=== PATIENT | female | born 1985 | race Caucasian/White ===

== ENCOUNTER 2018-09-11 04:20 | Inpatient (IN) | payer MEDICAID ==
[2018-09-11] MEDS ORDERED: LACTATED RINGER'S 1,000 ML IV (04:50)
[2018-09-11] MEDS ORDERED: BUTORPHANOL 2 MG INJ IV (05:00)
[2018-09-11] MEDS ORDERED: OXYTOCIN 30 UNITS/LR 500 ML IV ×2 (05:00→21:30)
[2018-09-11] MEDS ORDERED: LIDOCAINE 1% (MPF) 30 ML INJ INJ (05:00)
[2018-09-11] MEDS ORDERED: MINERAL OIL LIGHT 10 ML VIAL TOP (05:00)
[2018-09-11] MEDS ORDERED: CARBOPROST 250 MCG INJ IM ×2 (05:00→21:30)
[2018-09-11 05:34] LABS: ADD MAN DIFF? NO
[2018-09-11] MEDS: LACTATED RINGER'S 1,000 ML IV ×4 (05:37→17:58)
[2018-09-11 05:45] LABS: BASOPHILS % 0.4 % (0.0-2.0); EOSINOPHILS # 0.1 10^3/ul (0.0-0.5); EOSINOPHILS % 1.2 % (0.0-7.0); HEMATOCRIT 37.9 % (37.0-47.0); HEMOGLOBIN 12.4 g/dl (12.0-16.0); LYMPHOCYTES # 2.3 10^3/ul (0.8-2.9); MEAN CORPUSCULAR HEMOGLOBIN 29.9 pg (29.0-33.0); MEAN CORPUSCULAR HGB CONC 32.7 g/dl (32.0-37.0); MEAN CORPUSCULAR VOLUME 91.3 fl (82.0-101.0); MEAN PLATELET VOLUME 10.9 fl (7.4-10.4); MONOCYTE # 0.7 10^3/ul (0.3-0.9); MONOCYTES % 6.1 % (0.0-11.0); NEUTROPHIL # 7.5 10^3/ul (1.6-7.5); NEUTROPHILS % 70.5 % (39.0-77.0); PLATELET COUNT 180 10^3/UL (140-415); RED BLOOD COUNT 4.15 10^6/ul (4.20-5.40); RED CELL DISTRIBUTION WIDTH 14.2 % (11.5-14.5)
[2018-09-11 05:45] LABS: WHITE BLOOD COUNT 10.7 10^3/ul (4.8-10.8)
[2018-09-11 06:04] LABS: PARTIAL THROMBOPLASTIN TIME 26.1 Sec (23.0-35.0); PROTIME 12.3 Sec (11.9-14.9)
[2018-09-11 06:50] LABS: HEPATITIS B SURFACE ANTIGEN NEGATIVE (NEGATIVE)
[2018-09-11] MEDS: OXYTOCIN 30 UNITS/LR 500 ML IV ×3 (06:51→19:16)
[2018-09-11] MEDS ORDERED: KETOROLAC 30 MG INJ IV (11:00)
[2018-09-11] MEDS ORDERED: DIPHENHYDRAMINE 50 MG INJ IV ×2 (11:00→21:30)
[2018-09-11] MEDS ORDERED: HYDROmorphONE 0.5 MG/0.5 ML SYG IV ×2 (11:00)
[2018-09-11] MEDS ORDERED: ONDANSETRON 4 MG INJ IV ×2 (11:00→21:30)
[2018-09-11] MEDS ORDERED: NALOXONE (0.4 MG/ML) INJ IV (11:00)
[2018-09-11] MEDS ORDERED: FENTAnyl 2MCG/ML-ROPIV 0.2% 100 ML BAG EPI (11:00)
[2018-09-11 18:15] LABS: RAPID PLASMA REAGIN NONREACTIVE (NR)
[2018-09-11] MEDS: METHYLERGONOVINE 0.2 MG INJ IM (18:23)
[2018-09-11] MEDS: MISOPROSTOL 200 MCG TAB PR (18:41)
[2018-09-11] MEDS ORDERED: DEXTROSE 5%-LR 1,000 ML IV (21:03)
[2018-09-11] MEDS ORDERED: LACTATED RINGER'S 1,000 ML IV* (21:03)
[2018-09-11] MEDS ORDERED: MISOPROSTOL 200 MCG TAB PR (21:30)
[2018-09-11] MEDS ORDERED: METHYLERGONOVINE 0.2 MG INJ IM (21:30)
[2018-09-11] MEDS ORDERED: SENNA/DOCUSATE NA (8.6MG/50MG) TAB PO (21:30)
[2018-09-11] MEDS ORDERED: DIBUCAINE 1% 30 GM OINT TOP (21:30)
[2018-09-11] MEDS ORDERED: MAGNESIUM HYDROXIDE 30ML CUP PO (21:30)
[2018-09-11] MEDS ORDERED: OXYCODONE/ASPIRIN (4.88/325) TAB PO (21:30)
[2018-09-11] MEDS ORDERED: ZOLPIDEM 5 MG TAB PO (21:30)
[2018-09-11] MEDS ORDERED: ACETAMINOPHEN 325 MG TAB PO (21:30)
[2018-09-11] MEDS: IBUPROFEN 600 MG TAB PO (23:25)
[2018-09-11] MEDS: WITCH HAZEL/GLYCERIN PAD PR (23:25)
[2018-09-11] MEDS: LANOLIN HPA 1 PKT TOP (23:25)
[2018-09-11] MEDS: BENZOCAINE 20% 56 ML SPRAY TOP (23:25)
[2018-09-12] MEDS: IBUPROFEN 600 MG TAB PO ×4 (05:28→23:35)
[2018-09-12 05:30] LABS: ADD MAN DIFF? NO
[2018-09-12 05:38] LABS: BASOPHIL # 0.1 10^3/ul (0.0-0.1); BASOPHILS % 0.3 % (0.0-2.0); EOSINOPHILS # 0.1 10^3/ul (0.0-0.5); EOSINOPHILS % 0.5 % (0.0-7.0); HEMATOCRIT 35.7 % (37.0-47.0); HEMOGLOBIN 11.8 g/dl (12.0-16.0); LYMPHOCYTES # 2.8 10^3/ul (0.8-2.9); LYMPHOCYTES % 16.1 % (15.0-51.0); MEAN CORPUSCULAR HEMOGLOBIN 30.1 pg (29.0-33.0); MEAN CORPUSCULAR HGB CONC 33.1 g/dl (32.0-37.0); MEAN CORPUSCULAR VOLUME 91.1 fl (82.0-101.0); MEAN PLATELET VOLUME 10.7 fl (7.4-10.4); MONOCYTE # 1.3 10^3/ul (0.3-0.9); MONOCYTES % 7.5 % (0.0-11.0); PLATELET COUNT 163 10^3/UL (140-415); RED BLOOD COUNT 3.92 10^6/ul (4.20-5.40); RED CELL DISTRIBUTION WIDTH 14.6 % (11.5-14.5)
[2018-09-12 05:38] LABS: WHITE BLOOD COUNT 17.3 10^3/ul (4.8-10.8)
[2018-09-13] MEDS: IBUPROFEN 600 MG TAB PO ×3 (05:34→17:12)
[2018-09-13] MEDS: MEASLES,MUMPS,RUBELLA VACCINE INJ SC* (09:00)
[2018-09-13] MEDS: DIPHTH/TET/ACEL PERTUSS (ADULT) 0.5 ML VIAL IM* (09:00)
[2018-09-13 13:29] LABS: ADD MAN DIFF? NO
[2018-09-13 13:34] LABS: WHITE BLOOD COUNT 11.7 10^3/ul (4.8-10.8)
[2018-09-13 13:34] LABS: BASOPHILS % 0.3 % (0.0-2.0); EOSINOPHILS # 0.2 10^3/ul (0.0-0.5); EOSINOPHILS % 1.7 % (0.0-7.0); HEMOGLOBIN 10.9 g/dl (12.0-16.0); LYMPHOCYTES # 2.5 10^3/ul (0.8-2.9); LYMPHOCYTES % 21.1 % (15.0-51.0); MEAN CORPUSCULAR HEMOGLOBIN 29.5 pg (29.0-33.0); MEAN CORPUSCULAR HGB CONC 32.1 g/dl (32.0-37.0); MEAN CORPUSCULAR VOLUME 92.1 fl (82.0-101.0); MEAN PLATELET VOLUME 10.6 fl (7.4-10.4); MONOCYTE # 0.7 10^3/ul (0.3-0.9); MONOCYTES % 6.2 % (0.0-11.0); NEUTROPHIL # 8.2 10^3/ul (1.6-7.5); NEUTROPHILS % 69.9 % (39.0-77.0); PLATELET COUNT 193 10^3/UL (140-415); RED BLOOD COUNT 3.69 10^6/ul (4.20-5.40); RED CELL DISTRIBUTION WIDTH 14.6 % (11.5-14.5)
== END 2018-09-13 19:30 | disposition home or self-care (01) | DRG 807 ==
LOC: OBT 04:20 → L-D 04:30 → OBT 04:49 → L-D 04:49 → MS1 20:49
PROVIDERS: Obstetrics & Gynecology
PROC: 10E0XZZ Delivery of Products of Conception, External Approach (ICD-10-PCS; principal; 2018-09-11)
PROC: 0W8NXZZ Division of Female Perineum, External Approach (ICD-10-PCS; 2018-09-11)
DX: O69.81X0 Labor and delivery complicated by cord around neck, without compression, not applicable or unspecified (principal); Z37.0 Single live birth; Z3A.38 38 weeks gestation of pregnancy
CPT/HCPCS: 62322; 76815; 85025; 85610; 85730; 86592; 86850; 86900; 86901; 87340; 90715